=== PATIENT | female | born 1965 | race American Indian/Alaskan Native ===

== ENCOUNTER 2018-02-21 15:25 | Emergency (ER) | payer MEDICAID ==
[~2018-02-21] VITALS: Ht 162.6 cm; Wt 74.1 kg
[~2018-02-21 15:25] MED LIST: AMLO10TA PO; LEVO100V4 IV; POTA10CA44 PO; SODI20VI2 IV
[2018-02-21 17:28] VITALS: BP 132/88
== END 2018-02-21 17:30 | disposition home or self-care (01) ==
LOC: ER 15:26
DX: Z45.2 Encounter for adjustment and management of vascular access device (principal); Z88.2 Allergy status to sulfonamides; Z88.1 Allergy status to other antibiotic agents; Z91.018 Allergy to other foods; Z88.8 Allergy status to other drugs, medicaments and biological substances; Z91.040 Latex allergy status; Z79.899 Other long term (current) drug therapy
CPT/HCPCS: 99283

== ENCOUNTER 2019-03-01 11:00 | Day surgery (SDC) | payer MEDICAID ==
[~2019-03-01] VITALS: Ht 167.6 cm; Wt 74.8 kg
[2019-03-01] MEDS ORDERED: LEVO25TA7 PO (11:31)
[2019-03-01] MEDS ORDERED: METO-292 PO (11:31)
[2019-03-01 11:54] VITALS: BP 144/93
[2019-03-01] MEDS ORDERED: LIDOcaine 1% 30ml preserv. free vial SQ STA (13:08)
[2019-03-01 15:10] VITALS: BP 102/59
== END 2019-03-01 15:30 | disposition home or self-care (01) ==
LOC: SSTAY O 11:00
PROVIDERS: ATTEND Radiology Diagnostic Radiology
DX: Z45.2 Encounter for adjustment and management of vascular access device (principal); Z88.2 Allergy status to sulfonamides; Z88.8 Allergy status to other drugs, medicaments and biological substances; Z91.018 Allergy to other foods; Z88.7 Allergy status to serum and vaccine; Z79.899 Other long term (current) drug therapy; Z82.49 Family history of ischemic heart disease and other diseases of the circulatory system; Z83.3 Family history of diabetes mellitus
CPT/HCPCS: 36589; J2001

== ENCOUNTER 2019-04-03 13:33 | Emergency (ER) | payer MEDICAID ==
[~2019-04-03] VITALS: Ht 162.6 cm; Wt 75.2 kg
[~2019-04-03 13:33] MED LIST changes: -AMLO10TA PO; -LEVO100V4 IV; +LEVO25TA7 PO; +METO-292 PO; -POTA10CA44 PO; -SODI20VI2 IV
[2019-04-03 14:15] LABS: BASOPHILS # (AUTO) 0.1 X10'3 (0-0.2); BASOPHILS % (AUTO) 1.2 % (0-1); EOSINOPHILS # (AUTO) 0.4 X10'3 (0-0.9); EOSINOPHILS % (AUTO) 8.1 % (0-6); HEMATOCRIT 36.8 % (35.0-45.0); HEMOGLOBIN 12.1 g/dl (12.0-16.0); LYMPHOCYTES # (AUTO) 1.8 X10'3 (1.1-4.8); LYMPHOCYTES % (AUTO) 40.3 % (21-51); MEAN CORPUSCULAR HEMOGLOBIN 29.5 PG (27.0-31.0); MEAN CORPUSCULAR VOLUME 89.5 FL (78-98); MONOCYTES # (AUTO) 0.4 X10'3 (0-0.9); MONOCYTES % (AUTO) 7.7 % (2-12); NEUTROPHILS # (AUTO) 1.9 X10'3 (1.8-7.7); NEUTROPHILS % (AUTO) 42.7 % (42-75); PLATELET COUNT 271 X10'3 (140-440); RED BLOOD COUNT 4.11 X10'6 (4.20-5.60); RED CELL DISTRIBUTION WIDTH 13.8 % (11.5-14.5); WHITE BLOOD COUNT 4.5 X10'3 (4.5-11.0)
[2019-04-03 14:40] LABS: ALANINE AMINOTRANSFERASE 31 U/L (12-78); ALBUMIN 3.7 G/DL (3.4-5.0); ALBUMIN/GLOBULIN RATIO 1.1 (1.1-1.5); ALKALINE PHOSPHATASE 89 IU/L (46-116); AMYLASE 57 U/L (25-115); ANION GAP 10 (8-16); ASPARTATE AMINO TRANSFERASE 17 U/L (10-37); BILIRUBIN,TOTAL 1.2 MG/DL (0.1-1.0); BLOOD UREA NITROGEN 23 MG/DL (7-18); BUN/CREATININE RATIO 37.1 (6.6-38.0); CHLORIDE 107 MMOL/L (99-107); CREATININE 0.62 MG/DL (0.40-0.90); GLUCOSE 82 MG/DL (70-104); LIPASE 142 U/L (73-393); POTASSIUM 3.7 MMOL/L (3.5-5.1); SODIUM 144 MMOL/L (135-145); TOTAL CARBON DIOXIDE 27.4 MMOL/L (24-32); TOTAL PROTEIN 7.1 G/DL (6.4-8.2); eGFR > 90 ML/MIN
[2019-04-03 15:37] LABS: CALCIUM 8.4 MG/DL (8.5-10.1)
--- NOTE | 2019-04-03 16:06 | NUR ---
PT AMBULATORY TO BATHROOM WITH STEADY GAIT TO PROVIDE URINE SAMPLE PER ORDERS NOW, DR CRUZ FINISHED AT BEDSIDE, ORDERS TO FOLLOW.
[2019-04-03] MEDS ORDERED: normal saline 1000ML IV soln IVB ONE (16:10)
[2019-04-03] MEDS ORDERED: iohexol 300mg/ml 100ml inj. ONE (16:27)
[2019-04-03 16:46] LABS: CLARITY,URINE SLIGHTLY CLOUDY (Clear); COLOR,URINE STRAW (Yellow); GLUCOSE, URINE NEGATIVE (Neg); KETONES,URINE NEGATIVE (Neg); LEUKOCYTE ESTERASE ,URINE NEGATIVE (Neg); NITRITES, URINE NEGATIVE (Neg); OCCULT BLOOD,URINE NEGATIVE (Neg); PROTEIN,URINE NEGATIVE (Neg); URINE HCG NEGATIVE (NEG); UROBILINOGEN,URINE 0.2 E.U/dL (0.2-1.0)
[2019-04-03 16:49] LABS: UA COLLECTION TYPE CLN CATCH MIDSTREAM
[2019-04-03 16:57] LABS: MUCUS STRANDS NONE SEEN /LPF (Neg); SQUAMOUS EPITHELIAL CELL,UR MODERATE /LPF (FEW)
[2019-04-03 17:00] LABS: BACTERIA,URINE FEW /HPF (Neg); RBC,URINE 0-2 /HPF (0-2); WBC,URINE 0-4 /HPF (0-4)
[2019-04-03] MEDS ORDERED: ciprofloxacin 250mg tablet PO ONE (18:05)
[2019-04-03] MEDS ORDERED: metroNIDAZOLE 500mg tablet PO ONE (18:05)
[2019-04-03] MEDS ORDERED: CIPR-230 PO (18:08)
[2019-04-03] MEDS ORDERED: METR-159 PO (18:08)
[2019-04-03 18:27] VITALS: BP 167/94
== END 2019-04-03 18:28 | disposition home or self-care (01) ==
LOC: ER 13:33
DX: K52.9 Noninfective gastroenteritis and colitis, unspecified (principal); Z98.890 Other specified postprocedural states; Z88.2 Allergy status to sulfonamides; Z88.1 Allergy status to other antibiotic agents; Z91.040 Latex allergy status; Z88.8 Allergy status to other drugs, medicaments and biological substances; Z79.899 Other long term (current) drug therapy
CPT/HCPCS: 36415; 74177; 80053; 81001; 81025; 82150; 83690; 85025; 96360; 99284; J7030; Q9967; J3490